=== PATIENT | female | born 1955 | race Caucasian/White ===

== ENCOUNTER → 2022-02-21 10:03 | Outpatient (CLI) | payer MEDICARE, OTHER, SELFPAY ==
[2022-02-21 12:46] LABS: COVID19 -Nasal RAPID Negative (Negative)
== END ==
PROVIDERS: PCP Internal Medicine; Visit Provider Surgery
DX: Z01.812 Encounter for preprocedural laboratory examination (principal); Z20.822 Contact with and (suspected) exposure to COVID-19
CPT/HCPCS: 87635; C9803

== ENCOUNTER 2022-02-22 07:40 | Day surgery (SDC) | payer MEDICARE, OTHER, SELFPAY ==
[2022-02-22] MEDS: LACTATED RINGERS 1,000 ML 200 ML IV (07:52)
[2022-02-22 08:09] VITALS: BP 130/91; PULSE 68; RESP 16; TEMP 36.3; O2SAT 100; BMI 25.1
--- NOTE | 2022-02-22 08:44 | PM.HP.1 ---
History of Present Illness History of Present Illness Date Patient Seen: 02/22/22 Time Patient Seen: 08:44 Chief complaint: SDC Narrative: 66-year-old woman here for a diagnostic colonoscopy because of chronic diarrhea. Please refer to the H& P from January 2022 for further detail. Over the interim the diarrhea has resolved but the supplementation of Metamucil. Patient History Medical History (Updated 01/15/22 @ 14:53 by Samara Barrientos MD) Hx of reduction of orbital fracture Hyperlipemia Hypertension Mitral valve disease Unspecified hearing loss, unspecified ear Surgical History (Updated 01/15/22 @ 13:48 by Gera Remy RN) Hx of appendectomy Family & Social History Social History: household members none Tobacco & Substance use: Smoking Status Never smoker alcohol intake current alcohol intake frequency holiday/special occasion Substance Use Type does not use Meds Home Medications and Allergies Home Medications Medication Instructions Recorded Confirmed Type atorvastatin 20 mg tablet 20 mg PO DAILY 01/15/22 02/22/22 History diltiazem HCl 120 mg capsule,24 120 mg PO DAILY 01/15/22 02/22/22 History hr,extended release Allergies Allergy/AdvReac Type Severity Reaction Status Date / Time No Known Drug Allergies Allergy Verified 02/22/22 08:07 Exam Vital Signs (past 8 hours): - 02/22/22 08:09 Temperature 97.3 F L Pulse Rate 68 Respiratory Rate 16 Blood Pressure 130/91 H Pulse Oximetry 100 Oxygen Delivery Method Room Air Oxygen Delivery Method Room Air Narrative Exam Narrative: General adult woman alert oriented no acute distress Assessment & Plan Assessment & Plan narrative: 66-year-old woman with chronic diarrhea diagnostic colonoscopy.. Technical details were discussed. Risks, benefits, alternatives explained. Risks including but not limited to myocardial infarction, aspiration, bleeding, pain, missed lesion, incomplete examination, need for further radiographic studies, colonic perforation, and need for major abdominal surgery were discussed. All questions were answered to their satisfaction, and they are in agreement with this plan. Time Spent With Patient Critical Care time: I spent a total of [] minutes of critical care time on this patient's care today; this time is exclusive of procedural time.
--- NOTE | 2022-02-22 08:46 | PM.OP.COLON ---
Operative Date/Time/Diagnoses Date of procedure: 02/22/22 Time of procedure: 08:46 Pre-op diagnosis: Chronic diarrhea Post-op diagnosis: same Procedure & Clinicians Study performed: Colonoscopy Same procedure as scheduled: Yes Indications: Chronic diarrhea Surgeon: Antwon Mcgee Procedure Notes Procedure in detail: The history and physical was performed/updated and the patient is ASA class is 2. The procedure was discussed in detail with the patient. Potential risks complications including infection, bleeding, missed diagnosis, perforation, need for surgery, and were explained. Their questions were answered and informed consent was obtained. Patient was brought to the procedure room and placed standard monitoring equipment. The patient's vital signs were monitored continuously throughout the entire procedure. Prior to starting time-out was performed. The patient was placed in the left lateral recumbent position. Procedural sedation was administered by anesthesia. Examination began with a thorough inspection of the perianal area there was no evidence of fissures, fistulae, external hemorrhoids or cutaneous malignancy. The colonoscopy scope was then placed into the anal canal and was advanced to the cecum, which was identified by the ileocecal valve, the appendiceal orifice and the confluence of the taenia. The scope was then slowly withdrawn examining colon thoroughly in all directions, irrigating it of any residual stool. FINDINGS 1. No masses polyps or inflammation 2. Internal hemorrhoids The patient tolerated the procedure well. They will be discharged once criteria are met. The prep was of good/excellent quality. The withdrawl time was 6 minutes. Specimen(s): none sent Complications: none Impression: Normal colonoscopy Post-procedure Recommendations: Colonoscopy in 10 years and High fiber diet Disposition: same day surgery
[2022-02-22 09:09] VITALS: BP 98/70; PULSE 74; RESP 16; TEMP 36.6; O2SAT 98
[2022-02-22 09:14] VITALS: BP 109/76; PULSE 68; RESP 17; TEMP 36.5; O2SAT 99
[2022-02-22 09:17] VITALS: BP 111/79; PULSE 71; RESP 17; TEMP 36.4; O2SAT 98
== END 2022-02-22 09:30 | disposition home or self-care (01) ==
PROVIDERS: PCP Internal Medicine; Referring Provider Surgery; Visit Provider Surgery
PROC: 0DJD8ZZ Inspection of Lower Intestinal Tract, Via Natural or Artificial Opening Endoscopic (ICD-10-PCS; CPT 45378; principal; 2022-02-22 08:45)
DX: K52.9 Noninfective gastroenteritis and colitis, unspecified (principal); K64.8 Other hemorrhoids
CPT/HCPCS: 45378